=== PATIENT | female | born 1980 | race Caucasian/White ===

== ENCOUNTER 2016-12-21 20:31 | Emergency (ER) | payer MEDICAID, OTHER ==
[~2016-12-21] VITALS: Ht 157.5 cm; Wt 77.3 kg
[2016-12-21 20:34] VITALS: Ht 157.5 cm; Wt 77.3 kg
[2016-12-21] MEDS ORDERED: ONDANSETRON (ODT) 4 MG TAB ODT STA (20:39)
[2016-12-21] MEDS ORDERED: morphine 10 MG INJ IM ONE (21:00)
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
--- NOTE | 2016-12-21 23:01 | RADRPT ---
PROCEDURE: CT Thoracic Spine without contrast. CLINICAL INDICATION: Trauma TECHNIQUE: Noncontrast CT of the thoracic spine was performed with axial images. Coronal and sagitta l images were also performed. The administered radiation dose was CTDI vol = 27 mGy, DLP = 1036 mG y-cm. COMPARISON: There are no similar studies submitted for comparison. FINDINGS: Vertebral body stature and alignment are maintained. No acute fracture or subluxation is identified. The paravertebral and paraspinous soft tissues are unremarkable. Prior fusion of the T6 through T8 vertebral bodies is noted with a cynthia and screws on the left as wel l as a vertebral body spacer device. IMPRESSION: No acute fracture or subluxation. RPTAT: HIKT .Finn Heath MD, MD Date Time Electronically viewed and signed by .Finn Heath MD, on 12/21/2016 23:00 .T/
== END 2016-12-22 05:51 | disposition home or self-care (01) ==
LOC: E/R 20:31
DX: S33.9XXA Sprain of unspecified parts of lumbar spine and pelvis, initial encounter (principal); Y04.0XXA Assault by unarmed brawl or fight, initial encounter
CPT/HCPCS: 72128; 96372; J2270; Z7502; Z7610